=== PATIENT | female | born 1955 | race Caucasian/White ===

== ENCOUNTER 2016-07-31 10:25 | Emergency (ER) | payer OTHER ==
[2016-07-31] MEDS ORDERED: AZITHROMYCIN 250 MG TAB PO ONE (10:45)
[2016-07-31] MEDS ORDERED: IBUPROFEN 800 MG TAB PO ONE (10:45)
--- NOTE | 2016-07-31 10:47 | UCPHY ---
H & P Patient Type: New Time Seen by Provider: 07/31/16 10:38 HPI/ROS: CHIEF COMPLAINT: Sore throat, fever, finger infection HISTORY OF PRESENT ILLNESS: The patient is a 60-year-old female who comes to the Urgent Care complaining of pharyngitis and body aches and fever for 3 days. No cough, no shortness of breath, chest pain, no sinus infection. She did get a flu vaccination this year. She also has a paronychia to right index finger that has been there for the last 10 days. REVIEW OF SYSTEMS: Constitutional: See HPI EENTM: See HPI Respiratory: denies: cough, shortness of breath Cardiac: denies: chest pain, irregular heart rate, lightheadedness, palpitations Gastrointestinal/Abdominal: denies: abdominal pain, diarrhea, nausea, vomiting, blood streaked stools Genitourinary: denies: dysuria, frequency, hematuria, pain Musculoskeletal: denies: joint pain, muscle pain Skin: See HPI Neurological: denies: headache, numbness, paresthesia, tingling, dizziness, weakness Hematologic/Lymphatic: denies: blood clots, easy bleeding, easy bruising Immunologic/allergic: denies: HIV/AIDS, transplant EXAM: GENERAL: Well-appearing, well-nourished and in no acute distress. HEAD: Atraumatic, normocephalic. EYES: Pupils equal round and reactive to light, extraocular movements intact, sclera anicteric, conjunctiva are normal. ENT: TMs normal, nares patent, Pharynx with tonsillar swelling, erythema and exudate Moist mucous membranes. NECK: Normal range of motion, supple without lymphadenopathy or JVD. LUNGS: Breath sounds clear to auscultation bilaterally and equal. No wheezes rales or rhonchi. HEART: Regular rate and rhythm without murmurs, rubs or gallops. ABDOMEN: Soft, nontender, normoactive bowel sounds. No guarding, no rebound. No masses appreciated. BACK: No CVA tenderness, no spinal tenderness, step-offs or deformities EXTREMITIES: Paronychia to the medial aspect of right index finger. Normal range of motion, no pitting or edema. No clubbing or cyanosis. NEUROLOGICAL: Cranial nerves II through XII grossly intact. Normal speech, normal gait. 5/5 strength, normal movement in all extremities, normal sensation PSYCH: Normal mood, normal affect. SKIN: Warm, dry, normal turgor, no visible rashes or lesions. Source: Patient Exam Limitations: No limitations - Medical/Surgical History Hx Asthma: No Hx Chronic Respiratory Disease: No Hx Diabetes: No Hx Cardiac Disease: No Hx Renal Disease: No Hx Cirrhosis: No Hx Alcoholism: No - Family History Significant Family History: Hypertension - Social History Smoking Status: Never smoked Alcohol Use: None Drug Use: None Constitutional: Initial Vital Signs Temperature (C) 39.0 C H 07/31/16 10:47 Heart Rate 100 07/31/16 10:47 Respiratory Rate 20 07/31/16 10:47 Blood Pressure 120/76 07/31/16 10:47 O2 Sat (%) 92 07/31/16 10:47 O2 Delivery Mode Room Air Allergies/Adverse Reactions: No Known Allergies Allergy (Unverified 07/31/16 10:51) Home Medications: Medication Instructions Recorded AZITHROMYCIN [Z-PACK] 250 mg PO DAILY #4 tab 07/31/16 Albuterol 07/31/16 Medical Decision Making Procedures: Patient's paronychia was drained. She was anesthetized with a digital block 0.5 % bupivacaine without. She tolerated the procedure well. Small amount of purulence and blood obtained. Finger dressed with sterile dressing. ED Course/Re-evaluation: The patient has symptoms consistent with strep throat. I will treat her with azithromycin or fever control. Also drain her paronychia. Patient tolerated the procedure well. Discharge her with azithromycin. She is happy and laughing. Vital signs are stable. Differential Diagnosis: Partial list of the Differential diagnosis considered include but were not limited to; strep throat, pharyngitis, influenza, bronchitis, paronychia and although unlikely based on the history and physical exam, I also considered sepsis, bacteremia, urinary tract infection. I discussed these differential diagnoses and the plan with the patient as well as the usual and expected course. The patient understands that the diagnosis is provisional and that in medicine we are not always correct and that further workup is often warranted. Usual and customary warnings were given. All of the patient's questions were answered. The patient was instructed to return to the emergency department should the symptoms at all worsen or return, otherwise to followup with the physician as we discussed. - Data Points Laboratory Results: 07/31/16 10:40 Group A Strep Screen POSITIVE H (NEGATIVE) Medications Given: Discontinued Medications Acetaminophen (Tylenol) 975 mg PO EDNOW ONE Stop: 07/31/16 12:06 Last Admin: 07/31/16 12:00 Dose: 975 mg Azithromycin (Zithromax) 500 mg PO EDNOW ONE PRN Reason: Protocol Stop: 07/31/16 10:46 Last Admin: 07/31/16 11:00 Dose: 500 mg Ibuprofen (Motrin) 800 mg PO EDNOW ONE Stop: 07/31/16 10:46 Last Admin: 07/31/16 11:00 Dose: 800 mg Departure - Departure Disposition: Home, Routine, Self-Care Clinical Impression: Strep throat Paronychia Qualifiers: Laterality: right Qualifier Code: (L03.011) Cellulitis of right finger Condition: Fair Instructions: Paronychia (ED), Strep Throat (ED) Referrals: DOYLE MORTENSEN,. [Primary Care Provider] - As per Instructions Prescriptions: AZITHROMYCIN [Z-PACK] 250 mg PO DAILY #4 tab - PQRS PQRS Measurement: 134: Depression screening and followup, PRIME MD-PHQ2 (12 years and older) Over the last 2 weeks, how often have you been bothered by any of the following problems? 1. Feeling down, depressed, or hopeless? 2. Little interest or pleasure in doing things? Patient answered no to both 1 and 2 130: Documentation of medications. Reviewed all patient medications, doses, route and frequency. 226: Do you smoke? No. 47: 65 and older: Advanced care planning. Patient designates surrogate decision maker as spouse . Patient has advanced directive. 51: 18 years old and older with diagnosis of COPD, spirometry performance. Spirometry not performed; equipment not available. 52: 18 years old and older with COPD and symptoms of COPD or FEV1<60% predicted prescribed a B Agonist. Not applicable
[2016-07-31 10:51] VITALS: BP 120/76; PULSE 100; RESP 20; O2SAT 92
[2016-07-31] MEDS ORDERED: IBUPROFEN 200 MG TAB PO ONE (10:56)
[2016-07-31] MEDS ORDERED: IBUPROFEN 600 MG TAB PO ONE (10:57)
[2016-07-31] MEDS ORDERED: ACETAMINOPHEN 325 MG TAB ONE (12:01)
[2016-07-31 12:05] VITALS: TEMP 102.4
[2016-07-31] MEDS ORDERED: ACETAMINOPHEN 325 MG TAB PO ONE (12:05)
== END 2016-07-31 12:00 | disposition home or self-care (01) ==
LOC: CED 10:25
DX: L03.011 Cellulitis of right finger (principal); J02.0 Streptococcal pharyngitis
CPT/HCPCS: 87880-PO; G0463-PO